=== PATIENT | male | born 1975 | race Caucasian/White ===

== ENCOUNTER → 2022-02-02 08:22 | Outpatient (CLI) | payer OTHER, SELFPAY ==
--- NOTE | 2022-02-02 | DI.RAD.S_ITS ---
PROCEDURE: FL WRIST INJECTION MR/CT RT INDICATIONS: RIGHT WRIST INJURY COMPARISON: [facility], MR, MR WRIST RT W CON, 02/02/2022, 9:08. TECHNIQUE: After informed consent had been obtained, the wrist was examined fluoroscopically, and a site chosen for injection of the radiocarpal compartment from a dorsal approach. Skin was prepped and draped in a sterile fashion and 1% lidocaine infiltrated from the skin down to the articular surface. A hypodermic needle was then introduced and a modest amount of contrast medium was instilled. Contrast largely appeared extra-articular despite multiple attempts at needle repositioning. Eventually a small amount of contrast appeared intra-articular and given the contrast within the soft tissues further visualization was limited. Approximately 4 mL of a dilute gadolinium solution injected. Needle was removed and dressing was applied. The patient experienced no complications throughout the procedure and left the fluoroscopic suite in no apparent distress. FINDINGS: A single fluoroscopic spot image demonstrates injected iodinated contrast largely extra-articular in position with possible small amount of intra-articular contrast. IMPRESSION: Fluoroscopic-guided administration of dilute Gadolinium solution for wrist MR arthrogram. There was difficulty injecting contrast intra-articularly. A repeat wrist arthrogram could be attempted if clinically indicated. Dictated by: Misael Thakkar M.D. on 02/02/2022 at 9:59 Approved by: Misael Thakkar M.D. on 02/02/2022 at 10:07
--- NOTE | 2022-02-02 | DI.MRI.S_ITS ---
PROCEDURE: MR WRIST RT W CON INDICATIONS: RIGHT WRIST INJURY TECHNIQUE: After the administration of 3-4 mL of dilute intra-articular Gadolinium contrast into the radiocarpal compartment, coronal T1 spin echo with fat saturation and T2 fast spin echo with fat saturation, axial T1 spin echo and T2 fast spin echo with fat saturation, sagittal T1 spin echo with and without fat saturation through the wrist. COMPARISON: [facility], MR, MR WRIST RIGHT WITHOUT CONTRAST, 07/31/2017, 16:20. [facility], , [place] WRIST INJECTION MR/CT RT, 02/02/2022, 8:59. FINDINGS: Image quality: Extravasation of arthrogram contrast is seen dorsal to the wrist, without intra-articular contrast identified. Some diagnostic information is obtained. Bones and cartilage: The carpal bones are normally aligned. Mild osseous edema is seen at the dorsal tip of the lunate that may be related to degenerative changes or a recent contusion. No evidence for avascular necrosis. Subchondral cystic changes are seen in the ulnar head. There is minimal spurring at the base of the 1st metacarpal. Carpal ligaments: Mild irregularity of the membranous portion of the scapholunate ligament is most likely secondary to degenerative perforation as seen on the prior MRI from 07/31/2017. The dorsal and volar bands of the scapholunate ligament appear to be intact without widening of the scapholunate interval. The lunotriquetral ligament appears intact. On sagittal images, the pisohamate ligament appears intact. Triangular fibrocartilage complex: A moderately-sized defect is seen in the central triangular fibrocartilage disc. There is also focal fluid signal intensity the near the ulnar foveal attachment that is suspicious for partial tearing. The ulnar styloid attachment appears to be intact. The dorsal and volar radioulnar ligaments appear to be intact. Small amount of fluid is seen in the distal radial ulnar joint space. Tendons and soft tissues: The carpal tunnel structures appear normal, including the median nerve. The ulnar nerve appears normal within Guyon's canal. T1-hyperintense fluid is seen within the 1st through 4th extensor compartments, related to extravasation during the arthrogram injection. Superimposed tenosynovitis cannot be excluded. There is moderate extensor carpi ulnaris tendinosis. Small lobular ganglion cyst is seen dorsal to the lunate measuring up to 8 x 7 x 2 mm. IMPRESSION: 1. Moderately-sized full-thickness tearing of the central triangle fibrocartilage disc, which appears to have mildly increased in size when compared to the prior MRI from 07/31/2017. There is also suspected partial tearing of the ulnar foveal attachment of the triangular fibrocartilage that appears new. 2. 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 The dorsal and volar bands appear to remain in continuity. No widening of the scapholunate interval is seen. 3. Mild osseous edema within the dorsal lunate is of uncertain etiology and may represent chronic degenerative cystic changes versus possibly a prior contusion. 4. Small ganglion cyst at the dorsum of the wrist adjacent to the lunate that measures up to 8 mm. 5. Moderate extensor carpi ulnaris tendinosis. Dictated by: Misael Salas M.D. on 02/02/2022 at 9:58 Approved by: Misael Salas M.D. on 02/02/2022 at 11:11
== END ==
PROVIDERS: Referring Provider Orthopaedic Surgery; Visit Provider Orthopaedic Surgery
DX: M24.131 Other articular cartilage disorders, right wrist (principal); S69.91XA Unspecified injury of right wrist, hand and finger(s), initial encounter; X58.XXXA Exposure to other specified factors, initial encounter
CPT/HCPCS: 20605; 73222; 77002

== ENCOUNTER → 2022-06-09 08:27 | Outpatient (CLI) | payer OTHER, SELFPAY ==
--- NOTE | 2022-06-09 | DI.MRI.S_ITS ---
PROCEDURE: MR SHOULDER RT W CON INDICATIONS: Shoulder pain, history surgery in August 2021 TECHNIQUE: After the administration of 12 mL of dilute intra-articular Gadolinium contrast, oblique coronal T1 and T2 spin echo with fat saturation, oblique sagittal T1 spin echo with and without fat saturation, oblique sagittal T2 fast spin echo with fat saturation, axial T1 spin echo with fat saturation through the shoulder. COMPARISON: [facility], CR, XR SHOULDER 2+ VIEWS RIGHT, 06/02/2022, 11:09. FINDINGS: Image quality: Degraded by motion artifact. Rotator cuff: The supraspinatus, infraspinatus, and subscapularis tendons appear intact throughout. No rotator cuff muscle atrophy on sagittal images. Bones and bursae: No bone marrow contusions or fractures. There is widening of the acromioclavicular interval with adjacent metallic artifact, suggestive of sequelae surgery. There is a small amount of fluid interposed in the acromioclavicular interval. There is severe marrow edema within the distal clavicle, and mild marrow edema within the acromion. Capsule and soft tissues: There is undercutting of the anterosuperior labrum, suggestive of a sublabral foramen. The long head of the biceps tendon demonstrates normal location and morphology. The rotator interval appears normal, without fibrosis. The coracohumeral ligament is of normal thickness. No intra-articular bodies. IMPRESSION: 1. Postsurgical sequelae. 2. Marrow edema within the distal clavicle, as well as fluid within the acromioclavicular interval, greater than expected given relative remote surgery in this location. Findings are suggestive of soft tissue injury and bony contusion/stress injury. Assessment for fracture is limited by motion artifact. CT may be helpful to evaluate for fracture. 3. No rotator cuff tear. Dictated by: Preeti Clemons M.D. on 06/09/2022 at 9:43 Approved by: Preeti Clemons M.D. on 06/09/2022 at 9:49
--- NOTE | 2022-06-09 | DI.RAD.S_ITS ---
PROCEDURE: FL SHOULDER INJECTION MR/CT RT INDICATIONS: RIGHT SHOULDER PAIN COMPARISON: [facility], CR, XR SHOULDER 2+ VIEWS RIGHT, 06/02/2022, 11:09. [facility], MR, MR SHOULDER RT W CON, 06/09/2022, 8:54. TECHNIQUE: The indications, alternatives, benefits, risks, and complications of the procedure were explained to the patient. Written informed consent was obtained and placed in the chart. The shoulder was examined fluoroscopically and a site for needle placement chosen for entry into the glenohumeral joint from an anterior approach. The skin was prepped and draped in a sterile fashion, and 1% lidocaine infiltrated from skin down to joint capsule. A spinal needle was inserted into the glenohumeral joint, and a small amount of iodinated contrast media injected to confirm intra-articular placement of the needle tip. This was followed by approximately 12 mL dilute solution of a gadolinium containing MR contrast agent. The needle was removed and a dressing was applied. The patient was given postprocedural instructions and sent to the MR suite for MR imaging. FINDINGS: A single fluoroscopic spot image demonstrates intra-articular location of injected iodinated contrast. IMPRESSION: Successful fluoroscopically guided administration of dilute Gadolinium solution into the shoulder joint for MR arthrogram. Dictated by: Wally Cooney M.D. on 06/09/2022 at 10:12 Approved by: Wally Cooney M.D. on 06/09/2022 at 10:12
== END ==
PROVIDERS: PCP Student in an Organized Health Care Education/Training Program; Referring Provider Orthopaedic Surgery; Visit Provider Orthopaedic Surgery
DX: M25.511 Pain in right shoulder (principal)
CPT/HCPCS: 23350; 73222; 77002

== ENCOUNTER 2022-08-30 19:02 | Emergency (ER) | payer OTHER, SELFPAY ==
[2022-08-30 19:16] VITALS: BP 128/88; PULSE 98; RESP 16; TEMP 37.1; O2SAT 99; BMI 31.0
--- NOTE | 2022-08-30 19:19 | DI.RAD.S_ITS ---
PROCEDURE: XR ELBOW LT MIN 3V INDICATIONS: left elbow pain and swelling TECHNIQUE: 3 views of the elbow were acquired. COMPARISON: None. FINDINGS: Bones: Questionable nondisplaced fracture along the ventral aspect of the radial head seen at the articular surface. Soft tissues: No elbow joint effusion. Mild diffuse soft tissue swelling over the olecranon process without foreign body or soft tissue gas present. No suspicious soft tissue calcifications. IMPRESSION: 1. Questionable nondisplaced radial head fracture. Correlate with history of trauma in range of motion. 2. Soft tissue swelling over the olecranon without foreign body or soft tissue gas present. Dictated by: April Oropeza M.D. on 08/30/2022 at 21:28 Approved by: April Oropeza M.D. on 08/30/2022 at 21:30
[2022-08-30] MEDS: ACETAMINOPHEN 325 MG TABLET 650 MG PO (20:37)
[2022-08-30 21:55] VITALS: O2SAT 99
[2022-08-30 21:56] VITALS: BP 109/76; O2SAT 98
--- NOTE | 2022-08-30 22:44 | ED_ITS ---
HPI - Skin/Abscess/Foreign Bdy General Chief complaint: Skin/Abscess/Foreign Body Stated complaint: L side elbow pain, red/swollen, can't bend Time Seen by Provider: 08/30/22 22:30 Source: patient Mode of arrival: Ambulatory Limitations: no limitations History of Present Illness HPI narrative: 47-year-old male who is here for evaluation of discomfort and swelling to his left elbow. He states it is difficult for him to both bend and extend his elbow. Has never had anything like this in the past. No trauma. No fevers. Has tried some [id number]-[id number] medications for the discomfort without peripherally. Related Data Previous Rx's Medication Instructions Recorded hydrocodone 5 mg-acetaminophen 325 1 tab PO Q4H PRN pain #10 tabs 08/30/22 mg tablet sulfamethoxazole 400 1 tab PO BID 2 weeks #28 tabs 08/30/22 mg-trimethoprim 80 mg tablet (Bactrim) Allergies Allergy/AdvReac Type Severity Reaction Status Date / Time No Known Drug Allergies Allergy Verified 08/30/22 19:16 Review of Systems Constitutional Constitutional: Reports system reviewed and no additional complaints, except as documented Musculoskeletal Musculoskeletal: Reports system reviewed and no additional complaints, except as documented Integumentary/Breasts Skin/Breast: Reports system reviewed and no additional complaints, except as documented Patient History Social History Smoking Status: Unknown if ever smoked Smoking Status: Unknown if ever smoked alcohol intake frequency: holidays/special occasions only Substance Use Type: does not use Exam Initial Vital Signs Initial Vital Signs: Vital Signs Temperature 98.7 F 08/30/22 19:16 Pulse Rate 98 H 08/30/22 19:16 Respiratory Rate 16 08/30/22 19:16 Blood Pressure 128/88 08/30/22 19:16 Pulse Oximetry 99 08/30/22 19:16 Oxygen Delivery Method Room Air 08/30/22 19:16 Skin Other: Slight redness located over the olecranon bursa Neuro Sensory Exam: no sensory deficits noted Extrem Other: Patient does have swelling over the olecranon bursa consistent with bursitis. This does limit the range of motion of his left elbow. He is no tenderness over the radial head. His left shoulder and left wrist are unremarkable. No changes to the antecubital fossa. Course Orders Ordered: Discontinued Medications Acetaminophen (Acetaminophen 325 Mg Tablet) 650 mg PO NOW ONE Stop: 08/30/22 20:32 Last Admin: 08/30/22 20:37 Dose: 650 mg Documented By: TRAVIS Hydrocodone Bitart/Acetaminophen (Hydrocodone/Acet 5/325 Prepack) 1 bottle MISC SEEINSTR ONE Stop: 08/30/22 22:45 Last Admin: 08/30/22 22:51 Dose: 1 bottle Documented By: KIM Trimethoprim/Sulfamethoxazole (Trimeth/Sulfa 160/800 (Ds) Tablet) 1 tab PO NOW ONE Stop: 08/30/22 22:45 Last Admin: 08/30/22 22:51 Dose: 1 tab Documented By: KIM Vital Signs Vital signs: Vital Signs - 8 hr 08/30/22 21:55 08/30/22 21:56 08/30/22 21:56 Pulse Rate Respiratory Rate Blood Pressure 109/76 Pulse Oximetry 99 98 Oxygen Delivery Method 08/30/22 22:51 Pulse Rate 95 H Respiratory Rate 16 Blood Pressure 122/90 Pulse Oximetry 100 Oxygen Delivery Method Room Air MDM - Skin/Abscess/Foreign Bdy Imaging Data Extremity x-ray #1: Radiologist's Impression: PROCEDURE:? XR ELBOW LT MIN 3V ? INDICATIONS:? left elbow pain and swelling ? TECHNIQUE:? 3 views of the elbow were acquired.? ? COMPARISON:? None. ? FINDINGS:? ? Bones:? Questionable nondisplaced fracture along the ventral aspect of the radial head seen at the articular surface. ? Soft tissues:? No elbow joint effusion.? Mild diffuse soft tissue swelling over the olecranon process without foreign body or soft tissue gas present.? No suspicious soft tissue calcifications.? ? ? IMPRESSION:? ? 1. Questionable nondisplaced radial head fracture.? Correlate with history of trauma in range of motion. ? 2. Soft tissue swelling over the olecranon without foreign body or soft tissue gas present.? MDM Narrative Medical decision making narrative: The x-ray shows a possible radial head fracture however he has no tenderness over this area. His physical exam is consistent with a bursitis. He denies any trauma to the area. There is redness and some warmth but it is very much localized over the bursa. This does limit his range of motion. The question is whether not this is a septic bursitis versus just an inflammation. Given the redness over the area I am hesitant to drain the bursa for concern of introducing infection if there is not want already present. I have low suspicion that this is a septic joint. Plan will be is to treat it like a se ptic bursitis. Was placed on antibiotics. First dose given here in the emergency department. We did discuss other conservative measures that he could try at home. We did discuss strict return precautions and follow-up instructions. Has no indication for admission in the hospital. No indication for IV antibiotics. Also low suspicion for gout based on his presentation today. He was given return precautions and follow-up instructions. He expressed understanding and agreement. Discharge Plan Departure Patient Disposition: Home Clinical Impression: Olecranon bursitis of left elbow Instructions: Bursitis, How To Perform RICE (Rest, Ice, Compress, Elevate) Activity Restrictions/Additional Instructions: I do recommend you continue to take Tylenol/ibuprofen. You can also use ice over the area like we discussed. Take the medications as directed. Return to the emergency department for any new or worsening symptoms. Prescriptions: New sulfamethoxazole-trimethoprim [Bactrim] 400-80 mg tablet 1 tab PO BID 14 Days Qty: 28 0RF hydrocodone-acetaminophen 5-325 mg tablet 1 tab PO Q4H PRN (Reason: pain) Qty: 10 0RF Referrals: Jesus Manuel Callahan DO [Primary Care Provider] - Stand Alone Forms: Patient Portal/API
[2022-08-30 22:51] VITALS: BP 122/90; PULSE 95; RESP 16; O2SAT 100
[2022-08-30] MEDS: HYDROCODONE/ACET 5/325 PREPACK 1 BOTTLE MISC (22:51)
[2022-08-30] MEDS: TRIMETH/SULFA 160/800 (DS) TABLET 1 TAB PO (22:51)
== END 2022-08-30 22:56 | disposition home or self-care (01) ==
PROVIDERS: Emergency Provider Emergency Medicine; PCP Student in an Organized Health Care Education/Training Program
DX: M70.22 Olecranon bursitis, left elbow (principal)
CPT/HCPCS: 73080; 99283

== ENCOUNTER 2022-12-09 04:52 | Emergency (ER) | payer OTHER, SELFPAY ==
[2022-12-09] VITALS (9 sets, daily range): BP systolic 103–130; BP diastolic 55–78; PULSE 51–86; RESP 18; TEMP 37; O2SAT 97–99; BMI 31.0
--- NOTE | 2022-12-09 05:03 | ED.GENADULT ---
HPI - General Adult General Chief complaint: Extremity Problem,Nontraumatic Stated complaint: swollen, rt knee pain, can't walk, dehydrated Time Seen by Provider: 12/09/22 04:55 Source: patient Mode of arrival: Wheelchair Limitations: no limitations History of Present Illness HPI narrative: Patient is a 47-year-old male who comes in the emergency department for a couple days of swelling and pain to his right ankle in his right knee. He states that he also feels very dehydrated as his lips are very dry. He states he feels like his right ankle and knee are swollen. There was no known trauma. He does have swelling in his hands as well. He has been camping. He does have he describes her bug bites? in his hands. No fevers. No vomiting. No abdominal pain. Generally just does not feel very well. Related Data Previous Rx's Medication Instructions Recorded hydrocodone 5 mg-acetaminophen 325 1 tab PO Q4H PRN pain #10 tabs 08/30/22 mg tablet Allergies Allergy/AdvReac Type Severity Reaction Status Date / Time No Known Drug Allergies Allergy Verified 12/09/22 06:45 Review of Systems Review of Systems ROS Unobtainable: All systems reviewed & are unremarkable except as noted in HPI and below Patient History Social History Smoking Status: Unknown if ever smoked Smoking Status: Unknown if ever smoked alcohol intake frequency: holidays/special occasions only Substance Use Type: does not use Exam Initial Vital Signs Initial Vital Signs: Vital Signs Pulse Rate 86 12/09/22 05:03 Pulse Oximetry 97 12/09/22 05:03 Oxygen Delivery Method Room Air 12/09/22 05:03 Const General: cooperative, comfortable and No ill appearing [facility] Head: normal to inspection and normocephalic Resp Effort & Inspection: normal respiratory effort Auscultation: clear to auscultation bilaterally Cardio Rate: regular rate Rhythm: regular rhythm GI Inspection: normal to inspection Skin Other: Mild redness located in the distal 1/3 of the right tibia. Patient also has multiple very small pustules on the fingers of his right hand and left hand. Neuro General: patient alert, patient awake, patient oriented x3 and moves all extremities Extrem Other: Patient does have tenderness to palpation to his right ankle also his right knee. He is able to flex at the right knee but has discomfort doing so. Also has discomfort flexion-extension of the right ankle. His left lower extremity his relatively unremarkable. His pelvis is unremarkable. He does have swelling to bilateral hands. Course Orders Ordered: ED Orders 12/09/22 05:09 XR ankle RT min 3V Stat XR knee RT 3V Stat 12/09/22 05:30 Blood Culture Stat C-Reactive Protein Quant Stat Complete Blood Count AUTO DIFF Stat Comprehensive Metabolic Panel Stat Erythrocyte Sedimentation Rate Stat Lactate (Lactic Acid) Stat Lipase Stat Uric Acid Stat Discontinued Medications Sodium Chloride (Normal Saline 0.9%) 1,000 mls @ 1,000 mls/hr IV BOLUS ONE Stop: 12/09/22 06:08 Last Infusion: 12/09/22 06:53 Dose: Infused Ketorolac Tromethamine (Ketorolac 30 Mg/Ml Vial) 30 mg IV NOW ONE Stop: 12/09/22 05:44 Last Admin: 12/09/22 05:48 Dose: 30 mg Vital Signs Vital signs: Vital Signs - 8 hr 12/09/22 05:08 12/09/22 05:03 12/09/22 05:55 Temperature 98.6 F Pulse Rate 82 86 Respiratory Rate 18 Blood Pressure 130/73 122/75 Pulse Oximetry 98 97 Oxygen Delivery Method Room Air Room Air 12/09/22 05:55 12/09/22 06:00 12/09/22 06:00 Temperature Pulse Rate 70 73 Respiratory Rate Blood Pressure 120/66 Pulse Oximetry 99 99 Oxygen Delivery Method Room Air Room Air 12/09/22 06:30 12/09/22 06:30 Temperature Pulse Rate 63 Respiratory Rate Blood Pressure 115/78 Pulse Oximetry 97 Oxygen Delivery Method Room Air Medical Decision Making Lab Data Lab results reviewed: Yes I reviewed the patient's lab results. 12/09/22 05:30 12/09/22 05:30 Labs: Lab Results 12/09/22 12/09/22 12/09/22 Range/Units 05:30 05:30 05:30 WBC 8.9 (4.5-11.0) X10^3/uL RBC 4.34 L (4.5-5.9) X10^6/uL Hgb 12.7 L (13.5-17.5) g/dL Hct 37.5 L (41-53) % MCV 86.6 (80-100) fL MCH 29.2 (26-34) PG MCHC 33.7 (30-36) % RDW 13.6 (11.6-14.8) % Plt Count 141 L (150-400) X10^3/uL Neut % (Auto) 70.5 (50-75) % Lymph % (Auto) 17.7 L (25-40) % [place] % (Auto) 7.7 (3-14) % Eos % (Auto) 3.2 (2-4) % Baso % (Auto) 0.9 (0-2) % Neut # (Auto) 6300 (8454-5084) /uL Lymph # (Auto) 1600 (7410-2738) /uL [place] # (Auto) 700 (0-900) /uL Eos # (Auto) 300 (0-450) /uL Baso # (Auto) 100 (0-100) /uL ESR 7 (0-15) MM/HR Sodium 138 (137-145) mmol/L Potassium 3.4 (3.4-5.1) mmol/L Chloride 105 (98-107) mmol/L Carbon Dioxide 27 (22-32) mmol/L BUN 16 (9-20) mg/dL Creatinine 1.13 (0.66-1.25) mg/dL Estimated GFR > 60 (>60) mL/min BUN/Creatinine Ratio 14.2 (6-22) Glucose 123 H (70-100) mg/dL Lactate (0.7-2.1) mmol/L Uric Acid 8.4 (3.5-8.5) mg/dL Calcium 8.2 L (8.4-10.2) mg/dL Total Bilirubin 0.3 (0.2-1.3) mg/dL AST 70 H (17-59) IU/L ALT 62 H (<50) IU/L Alkaline Phosphatase 68 (38-126) U/L C-Reactive Protein 3.0 H (<1.0) mg/dL Total Protein 6.1 L (6.3-8.2) g/dL Albumin 3.6 (3.5-5.0) g/dL Globulin 2.5 (1.7-4.1) g/dL Albumin/Globulin Ratio 1.4 (1.0-2.8) Lipase 215 (23-300) U/L 12/09/22 Range/Units 05:30 WBC (4.5-11.0) X10^3/uL RBC (4.5-5.9) X10^6/uL Hgb (13.5-17.5) g/dL Hct (41-53) % MCV (80-100) fL MCH (26-34) PG MCHC (30-36) % RDW (11.6-14.8) % Plt Count (150-400) X10^3/uL Neut % (Auto) (50-75) % Lymph % (Auto) (25-40) % [place] % (Auto) (3-14) % Eos % (Auto) (2-4) % Baso % (Auto) (0-2) % Neut # (Auto) (0639-8786) /uL Lymph # (Auto) (7724-4052) /uL [place] # (Auto) (0-900) /uL Eos # (Auto) (0-450) /uL Baso # (Auto) (0-100) /uL ESR (0-15) MM/HR Sodium (137-145) mmol/L Potassium (3.4-5.1) mmol/L Chloride (98-107) mmol/L Carbon Dioxide (22-32) mmol/L BUN (9-20) mg/dL Creatinine (0.66-1.25) mg/dL Estimated GFR (>60) mL/min BUN/Creatinine Ratio (6-22) Glucose (70-100) mg/dL Lactate 1.2 (0.7-2.1) mmol/L Uric Acid (3.5-8.5) mg/dL Calcium (8.4-10.2) mg/dL Total Bilirubin (0.2-1.3) mg/dL AST (17-59) IU/L ALT (<50) IU/L Alkaline Phosphatase (38-126) U/L C-Reactive Protein (<1.0) mg/dL Total Protein (6.3-8.2) g/dL Albumin (3.5-5.0) g/dL Globulin (1.7-4.1) g/dL Albumin/Globulin Ratio (1.0-2.8) Lipase (23-300) U/L Urine Dip Bedside Urine Glucose Negative Bedside Urine Bilirubin + 1 Bedside Urine Ketone - Negative Urine Specific Maribel 1.015 Bedside Urine Occult Blood +/- Bedside Urine pH 6.0 Bedside Urine Protein - Negative Bedside Urine Urobilinogen - Negative Bedside Urine Nitrite - Negative Bedside Urine Leukocytes - Negative Esterase Point of care testing: Urine Dip Bedside Urine Glucose Negative Bedside Urine Bilirubin + 1 Bedside Urine Ketone - Negative Urine Specific Maribel 1.015 Bedside Urine Occult Blood +/- Bedside Urine pH 6.0 Bedside Urine Protein - Negative Bedside Urine Urobilinogen - Negative Bedside Urine Nitrite - Negative Bedside Urine Leukocytes - Negative Esterase Imaging Data Extremity x-ray #1: Attestation: I personally reviewed and interpreted this imaging study as follows: My Impression: Of fractures or dislocation of the right knee Extremity x-ray #2: Attestation: I personally reviewed and interpreted this imaging study as follows: My Impression: No fractures or dislocation of the right ankle MDM Narrative Medical decision making narrative: Labs are very reassuring. Does not have a leukocytosis. Is afebrile. Has not tachycardic. Has a normal lactate and normal ESR but is slightly elevated CRP. Unsure of the significance of this. His uric acid is normal. X-ray show no signs of fracture. Care turned over to Dr. Urbina to follow-up and disposition. Discharge Plan Departure Prescriptions: No Action hydrocodone-acetaminophen 5-325 mg tablet 1 tab PO Q4H PRN (Reason: pain) Qty: 10 0RF Referrals: Jesus Manuel Callahan DO [Primary Care Provider] -
--- NOTE | 2022-12-09 05:09 | DI.RAD.S_ITS ---
PROCEDURE: XR ANKLE RT MIN 3V INDICATIONS: pain and swelling TECHNIQUE: 3 views of the ankle were acquired. COMPARISON: None. FINDINGS: Bones: No fractures or dislocations. Ankle mortise is normally aligned. No suspicious bony lesions. Soft tissues: No tibiotalar joint effusion. Achilles tendon appears normal. Soft tissue swelling. IMPRESSION: No acute osseous abnormality. Soft tissue swelling. If clinical symptoms persist or clinical suspicion for pathology is high, a repeat examination in 7-10 days, or advanced imaging such as CT or MRI is suggested for further evaluation. No significant discrepancy with the shiftman radiology preliminary report. Dictated by: Wally Cooney M.D. on 12/09/2022 at 9:15 Approved by: Wally Cooney M.D. on 12/09/2022 at 9:16
--- NOTE | 2022-12-09 05:09 | DI.RAD.S_ITS ---
PROCEDURE: XR KNEE RT 3V INDICATIONS: pain and swelling TECHNIQUE: 3 views of the knee were acquired. COMPARISON: None. FINDINGS: Bones: No fractures or dislocations. No suspicious bony lesions. Soft tissues: No joint effusion. No suspicious soft tissue calcifications. IMPRESSION: No acute osseous abnormality. If clinical symptoms persist or clinical suspicion for pathology is high, a repeat examination in 7-10 days, or advanced imaging such as CT or MRI is suggested for further evaluation. No significant discrepancy with the [facility] radiology preliminary report. Dictated by: Wally Cooney M.D. on 12/09/2022 at 9:16 Approved by: Wally Cooney M.D. on 12/09/2022 at 9:17
[2022-12-09 05:44] LABS: Add Manual Diff / Slide Review NO; Basophils Absolute Auto 100 /uL (0-100); Basophils Percent Auto 0.9 % (0-2); Eosinophils Absolute Auto 300 /uL (0-450); Eosinophils Percent Auto 3.2 % (2-4); Hematocrit 37.5 % (41-53); Hemoglobin 12.7 g/dL (13.5-17.5); Lymphocytes Absolute Auto 1600 /uL (1100-4500); Lymphocytes Percent Auto 17.7 % (25-40); Mean Corpuscular HGB Conc 33.7 % (30-36); Mean Corpuscular Hemoglobin 29.2 PG (26-34); Mean Corpuscular Volume 86.6 fL (80-100); Monocytes Absolute Auto 700 /uL (0-900); Monocytes Percent Auto 7.7 % (3-14); Neutrophils Absolute Auto 6300 /uL (1500-7000); Neutrophils Percent Auto 70.5 % (50-75); Platelet Count 141 X10^3/uL (150-400); Red Blood Cell Count 4.34 X10^6/uL (4.5-5.9); Red Cell Distribution Width 13.6 % (11.6-14.8); White Blood Cell Count 8.9 X10^3/uL (4.5-11.0)
[2022-12-09] MEDS: SODIUM CHLORIDE 0.9% 1,000 ML 1000 ML IV (05:48)
[2022-12-09] MEDS: KETOROLAC 30 MG/ML VIAL IV (05:48)
[2022-12-09 05:53] LABS: Lactate (Lactic Acid) 1.2 mmol/L (0.7-2.1)
[2022-12-09 05:57] LABS: Alanine Aminotransferase 62 IU/L (<50); Albumin 3.6 g/dL (3.5-5.0); Albumin Globulin Ratio 1.4 (1.0-2.8); Alkaline Phosphatase 68 U/L (38-126); Aspartate Aminotransferase 70 IU/L (17-59); BUN Creatinine Ratio 14.2 (6-22); Bilirubin Total 0.3 mg/dL (0.2-1.3); Blood Urea Nitrogen 16 mg/dL (9-20); Calcium 8.2 mg/dL (8.4-10.2); Carbon Dioxide 27 mmol/L (22-32); Chloride 105 mmol/L (98-107); Estimated Glomerular Filt Rate > 60 mL/min (>60); Globulin 2.5 g/dL (1.7-4.1); Glucose 123 mg/dL (70-100); HEMOLYSIS 15 (0-50); Lipase 215 U/L (23-300); Potassium 3.4 mmol/L (3.4-5.1); Sodium 138 mmol/L (137-145); Total Protein 6.1 g/dL (6.3-8.2)
[2022-12-09 06:03] LABS: Erythrocyte Sedimentation Rate 7 MM/HR (0-15)
[2022-12-09 06:13] LABS: Uric Acid 8.4 mg/dL (3.5-8.5)
--- NOTE | 2022-12-09 08:01 | ED_ITS ---
HPI - Extremity Problem General Chief complaint: Extremity Problem,Nontraumatic Stated complaint: swollen, rt knee pain, can't walk, dehydrated Time Seen by Provider: 12/09/22 04:55 Source: patient Mode of arrival: Wheelchair Limitations: no limitations History of Present Illness HPI Narrative: Please see originial document with Dr. Conner from 12/09/22 started at 05:03. Patient did not have a separate visit. Related Data Previous Rx's Medication Instructions Recorded hydrocodone 5 mg-acetaminophen 325 1 tab PO Q4H PRN pain #10 tabs 08/30/22 mg tablet doxycycline hyclate 100 mg tablet 100 mg PO BID #20 tabs 12/09/22 Allergies Allergy/AdvReac Type Severity Reaction Status Date / Time No Known Drug Allergies Allergy Verified 12/09/22 06:45 Patient History Social History Smoking Status: Unknown if ever smoked Smoking Status: Unknown if ever smoked alcohol intake frequency: holidays/special occasions only Substance Use Type: does not use Exam Initial Vital Signs Initial Vital Signs: Vital Signs Pulse Rate 86 12/09/22 05:03 Pulse Oximetry 97 12/09/22 05:03 Oxygen Delivery Method Room Air 12/09/22 05:03 Course Orders Ordered: ED Orders 12/09/22 05:09 XR ankle RT min 3V Stat XR knee RT 3V Stat 12/09/22 05:30 C-Reactive Protein Quant Stat Complete Blood Count AUTO DIFF Stat Comprehensive Metabolic Panel Stat Erythrocyte Sedimentation Rate Stat Lactate (Lactic Acid) Stat Lipase Stat Uric Acid Stat 12/09/22 06:05 Blood Culture Stat Discontinued Medications Sodium Chloride (Normal Saline 0.9%) 1,000 mls @ 1,000 mls/hr IV BOLUS ONE Stop: 12/09/22 06:08 Last Infusion: 12/09/22 06:53 Dose: 0 mls/hr Documented By: Admin: 12/09/22 05:48 Dose: 1,000 mls/hr Documented By: DANA Ketorolac Tromethamine (Ketorolac 30 Mg/Ml Vial) 30 mg IV NOW ONE Stop: 12/09/22 05:44 Last Admin: 12/09/22 05:48 Dose: 30 mg Documented By: DANA Vital Signs Vital signs: Vital Signs - 8 hr 12/09/22 05:08 12/09/22 05:03 12/09/22 05:55 Temperature 98.6 F Pulse Rate 82 86 Respiratory Rate 18 Blood Pressure 130/73 122/75 Pulse Oximetry 98 97 Oxygen Delivery Method Room Air Room Air 12/09/22 05:55 12/09/22 06:00 12/09/22 06:00 Temperature Pulse Rate 70 73 Respiratory Rate Blood Pressure 120/66 Pulse Oximetry 99 99 Oxygen Delivery Method Room Air Room Air 12/09/22 06:30 12/09/22 06:30 12/09/22 07:00 Temperature Pulse Rate 63 Respiratory Rate Blood Pressure 115/78 112/64 Pulse Oximetry 97 Oxygen Delivery Method Room Air 12/09/22 07:00 12/09/22 07:30 12/09/22 07:30 Temperature Pulse Rate 72 52 L Respiratory Rate Blood Pressure 103/55 L Pulse Oximetry 97 97 Oxygen Delivery Method 12/09/22 08:00 12/09/22 08:00 12/09/22 08:12 Temperature Pulse Rate 51 L Respiratory Rate Blood Pressure 115/66 117/73 Pulse Oximetry 99 Oxygen Delivery Method 12/09/22 08:12 Temperature Pulse Rate 72 Respiratory Rate Blood Pressure Pulse Oximetry 99 Oxygen Delivery Method MDM - Extremity (Nontraumatic) Lab Data 12/09/22 05:30 12/09/22 05:30 Labs: Lab Results 12/09/22 12/09/22 12/09/22 Range/Units 05:30 05:30 05:30 WBC 8.9 (4.5-11.0) X10^3/uL RBC 4.34 L (4.5-5.9) X10^6/uL Hgb 12.7 L (13.5-17.5) g/dL Hct 37.5 L (41-53) % MCV 86.6 (80-100) fL MCH 29.2 (26-34) PG MCHC 33.7 (30-36) % RDW 13.6 (11.6-14.8) % Plt Count 141 L (150-400) X10^3/uL Neut % (Auto) 70.5 (50-75) % Lymph % (Auto) 17.7 L (25-40) % [place] % (Auto) 7.7 (3-14) % Eos % (Auto) 3.2 (2-4) % Baso % (Auto) 0.9 (0-2) % Neut # (Auto) 6300 (3939-5798) /uL Lymph # (Auto) 1600 (7891-4156) /uL [place] # (Auto) 700 (0-900) /uL Eos # (Auto) 300 (0-450) /uL Baso # (Auto) 100 (0-100) /uL ESR 7 (0-15) MM/HR Sodium 138 (137-145) mmol/L Potassium 3.4 (3.4-5.1) mmol/L Chloride 105 (98-107) mmol/L Carbon Dioxide 27 (22-32) mmol/L BUN 16 (9-20) mg/dL Creatinine 1.13 (0.66-1.25) mg/dL Estimated GFR > 60 (>60) mL/min BUN/Creatinine Ratio 14.2 (6-22) Glucose 123 H (70-100) mg/dL Lactate (0.7-2.1) mmol/L Uric Acid 8.4 (3.5-8.5) mg/dL Calcium 8.2 L (8.4-10.2) mg/dL Total Bilirubin 0.3 (0.2-1.3) mg/dL AST 70 H (17-59) IU/L ALT 62 H (<50) IU/L Alkaline Phosphatase 68 (38-126) U/L C-Reactive Protein 3.0 H (<1.0) mg/dL Total Protein 6.1 L (6.3-8.2) g/dL Albumin 3.6 (3.5-5.0) g/dL Globulin 2.5 (1.7-4.1) g/dL Albumin/Globulin Ratio 1.4 (1.0-2.8) Lipase 215 (23-300) U/L 12/09/22 Range/Units 05:30 WBC (4.5-11.0) X10^3/uL RBC (4.5-5.9) X10^6/uL Hgb (13.5-17.5) g/dL Hct (41-53) % MCV (80-100) fL MCH (26-34) PG MCHC (30-36) % RDW (11.6-14.8) % Plt Count (150-400) X10^3/uL Neut % (Auto) (50-75) % Lymph % (Auto) (25-40) % [place] % (Auto) (3-14) % Eos % (Auto) (2-4) % Baso % (Auto) (0-2) % Neut # (Auto) (7757-7804) /uL Lymph # (Auto) (6345-9615) /uL [place] # (Auto) (0-900) /uL Eos # (Auto) (0-450) /uL Baso # (Auto) (0-100) /uL ESR (0-15) MM/HR Sodium (137-145) mmol/L Potassium (3.4-5.1) mmol/L Chloride (98-107) mmol/L Carbon Dioxide (22-32) mmol/L BUN (9-20) mg/dL Creatinine (0.66-1.25) mg/dL Estimated GFR (>60) mL/min BUN/Creatinine Ratio (6-22) Glucose (70-100) mg/dL Lactate 1.2 (0.7-2.1) mmol/L Uric Acid (3.5-8.5) mg/dL Calcium (8.4-10.2) mg/dL Total Bilirubin (0.2-1.3) mg/dL AST (17-59) IU/L ALT (<50) IU/L Alkaline Phosphatase (38-126) U/L C-Reactive Protein (<1.0) mg/dL Total Protein (6.3-8.2) g/dL Albumin (3.5-5.0) g/dL Globulin (1.7-4.1) g/dL Albumin/Globulin Ratio (1.0-2.8) Lipase (23-300) U/L Urine Dip Bedside Urine Glucose Negative Bedside Urine Bilirubin + 1 Bedside Urine Ketone - Negative Urine Specific [place] 1.015 Bedside Urine Occult Blood +/- Bedside Urine pH 6.0 Bedside Urine Protein - Negative Bedside Urine Urobilinogen - Negative Bedside Urine Nitrite - Negative Bedside Urine Leukocytes - Negative Esterase Discharge Plan Departure Patient Disposition: Home Clinical Impression: Polyarthralgia Instructions: DI for Arthralgia Activity Restrictions/Additional Instructions: Please follow-up for recheck, if your symptoms continue to persist your physician may need to perform additional workup and possibly referral to Rheumatology. A test for Lyme disease was sent. This is a send out lab and takes about 1-5 days to return. This is a less likely cause of your symptoms but possible. You may take Tylenol up to a 1000 mg every 6 hours, you may also take meloxicam 1 tablet every 12 hours as needed for pain. This medication is an NSAID do not take ibuprofen, Aleve or naproxen with this medication. Prescription for antibiotic was sent, take 1 tablet twice daily times 10 days. Doxycycline can make you more likely to have sun smith so use sun protection while taking this medication. Prescription sent to [facility] in [place]. Please return for worsening symptoms, new fevers, chest pain or shortness of breath, lightheadedness or passing out, alterations in mental status, persistent vomiting, new weakness, numbness or tingling, spreading rash or other new or concerning changes Prescriptions: New doxycycline hyclate 100 mg tablet 100 mg PO BID Qty: 20 0RF No Action hydrocodone-acetaminophen 5-325 mg tablet 1 tab PO Q4H PRN (Reason: pain) Qty: 10 0RF Referrals: Jesus Manuel Callahan DO [Primary Care Provider] - Stand Alone Forms: Patient Portal/API, Work Release Note
[2022-12-14 11:16] LABS: 18 kD IgG Band Absent (.); 23 kD IgG Band Absent (.); 28 kD IgG Band Absent (.); 30 kD IgG Band Absent (.); 39 kD IgG Band Absent (.); 41 kD IgG Bands Absent (.); 45 kD IgG Band Absent (.); 58 kD IgG Band Absent (.); 66 kD IgG Band Absent (.); IgG P93 AB Absent (.); IgM P23 AB Absent (.); IgM P39 AB Absent (.); IgM P41 AB Absent (.); Lyme IgG Line Blot Interpretat Negative (.); Lyme IgM Line Blot Interpretat Negative (.)
== END 2022-12-09 08:38 | disposition home or self-care (01) ==
PROVIDERS: Emergency Medicine; Emergency Provider Emergency Medicine; PCP Student in an Organized Health Care Education/Training Program
DX: M25.561 Pain in right knee (principal)
CPT/HCPCS: 36415; 73562; 73610; 80053; 81003; 83605; 83690; 84550; 85025; 85651; 86140; 86617; 87040; 96374; 99284; J1885

== ENCOUNTER 2023-02-16 08:52 | Emergency (ER) | payer OTHER, SELFPAY ==
[2023-02-16 09:05] VITALS: BP 114/77; PULSE 72; RESP 16; TEMP 36.8; O2SAT 100; BMI 30.2
--- NOTE | 2023-02-16 09:06 | DI.RAD.S_ITS ---
PROCEDURE: XR FOOT RT MIN 3V INDICATIONS: fall TECHNIQUE: 3 views of the foot were acquired. COMPARISON: None. FINDINGS: Bones: No fractures or dislocations. No suspicious bony lesions. Soft tissues: No tibiotalar joint effusion. Achilles tendon appears normal. IMPRESSION: Right foot without acute fracture or dislocation. If there is persistent clinical concern for occult fracture given adequate mechanism of injury, consider repeat imaging in 10-14 days. Dictated by: Juaquin Contreras M.D. on 02/16/2023 at 10:02 Approved by: Juaquin Cotnreras M.D. on 02/16/2023 at 10:03
--- NOTE | 2023-02-16 09:06 | DI.RAD.S_ITS ---
PROCEDURE: XR ANKLE LT MIN 3V INDICATIONS: fall TECHNIQUE: 3 views of the ankle were acquired. COMPARISON: [facility], CR, XR ANKLE RT MIN 3V, 12/09/2022, 5:31. FINDINGS: Bones: No fractures or dislocations. Ankle mortise is normally aligned. No suspicious bony lesions. Soft tissues: No tibiotalar joint effusion. Achilles tendon appears normal. Soft tissue swelling of the mediolateral malleolus. IMPRESSION: Left ankle soft tissue swelling without underlying fracture or dislocation. If there is persistent clinical concern for occult fracture given adequate mechanism of injury, consider repeat imaging in 10-14 days. Dictated by: Juaquin Contreras M.D. on 02/16/2023 at 10:01 Approved by: Juaquin Contreras M.D. on 02/16/2023 at 10:02
--- NOTE | 2023-02-16 09:06 | DI.RAD.S_ITS ---
PROCEDURE: XR FOOT LT MIN 3V INDICATIONS: fall TECHNIQUE: 3 views of the foot were acquired. COMPARISON: None. FINDINGS: Bones: No definite fractures or dislocations. No suspicious bony lesions. Soft tissues: No tibiotalar joint effusion. Achilles tendon appears normal. Diffuse soft tissue swelling of the left foot. IMPRESSION: Diffuse soft tissue swelling of the left foot without underlying fracture or dislocation. If there is persistent clinical concern for occult fracture given adequate mechanism of injury, consider repeat imaging in 10-14 days. Dictated by: Juaquin Contreras M.D. on 02/16/2023 at 10:00 Approved by: Juaquin Contreras M.D. on 02/16/2023 at 10:01
--- NOTE | 2023-02-16 09:58 | ED.LOWEXIN ---
HPI - Extremity Injury (Lower) General Chief Complaint: Extremity Injury, Lower Stated Complaint: foot pain (both), swelling on lt foot Time Seen by Provider: 02/16/23 09:11 Source: patient Mode of arrival: Ambulatory Related Data Home Medications Medication Instructions Recorded Confirmed allopurinol 100 mg tablet 100 mg PO DAILY 02/16/23 02/16/23 dextroamphetamine-amphetamine ER 1 cap PO DIRECTED 02/16/23 02/16/23 10 mg 24hr capsule,extend release dextroamphetamine-amphetamine ER 1 cap PO QAM 02/16/23 02/16/23 30 mg 24hr capsule,extend release trazodone 150 mg tablet 150 mg PO ONCE PM 02/16/23 02/16/23 venlafaxine 75 mg capsule,extended PO 02/16/23 release 24 hr Allergies Allergy/AdvReac Type Severity Reaction Status Date / Time No Known Drug Allergies Allergy Verified 02/16/23 09:11 Patient History Social History Smoking Status: Unknown if ever smoked Smoking Status: Unknown if ever smoked alcohol intake frequency: holidays/special occasions only Substance Use Type: does not use Exam Initial Vital Signs Initial Vital Signs: Vital Signs Temperature 98.2 F 02/16/23 09:05 Pulse Rate 72 02/16/23 09:05 Respiratory Rate 16 02/16/23 09:05 Blood Pressure 114/77 02/16/23 09:05 Pulse Oximetry 100 02/16/23 09:05 Oxygen Delivery Method Room Air 02/16/23 09:05 Course Orders Ordered: ED Orders 02/16/23 09:06 XR ankle LT min 3V Stat XR foot LT min 3V Stat XR foot RT min 3V Stat Vital Signs Vital signs: Vital Signs - 8 hr 02/16/23 09:05 Temperature 98.2 F Pulse Rate 72 Respiratory Rate 16 Blood Pressure 114/77 Pulse Oximetry 100 Oxygen Delivery Method Room Air Discharge Plan Departure Prescriptions: No Action venlafaxine 75 mg capsule,extended release 24hr PO allopurinol 100 mg tablet 100 mg PO DAILY trazodone 150 mg tablet 150 mg PO ONCE PM dextroamphetamine-amphetamine 10 mg capsule,extended release 24hr 1 cap PO DIRECTED Rx Instructions: in afternoon dextroamphetamine-amphetamine 30 mg capsule,extended release 24hr 1 cap PO QAM Referrals: Jesus Manuel Callahan DO [Primary Care Provider] -
--- NOTE | 2023-02-16 10:18 | ED.LOWEXIN ---
HPI - Extremity Injury (Lower) General Chief Complaint: Extremity Injury, Lower Stated Complaint: foot pain (both), swelling on lt foot Time Seen by Provider: 02/16/23 09:11 Source: patient Mode of arrival: Ambulatory History of Present Illness HPI Narrative: 47-year-old male presents for evaluation of bilateral foot pain and swelling, L>R. Several days ago the patient was camping when he missed a step and his foot went over the edge. He states that he is had pain and swelling in his left leg that he has been trying to take Tylenol and Motrin for, but he is continuing to have pain. He has been getting around by hopping on his right foot, and over the last 1-2 days his right foot has began to swell a little bit, however his left foot is causing him the most discomfort. He states that he is here today for x-rays to make sure he does not have a fracture. Related Data Home Medications Medication Instructions Recorded Confirmed allopurinol 100 mg tablet 100 mg PO DAILY 02/16/23 02/16/23 dextroamphetamine-amphetamine ER 1 cap PO DIRECTED 02/16/23 02/16/23 10 mg 24hr capsule,extend release dextroamphetamine-amphetamine ER 1 cap PO QAM 02/16/23 02/16/23 30 mg 24hr capsule,extend release trazodone 150 mg tablet 150 mg PO ONCE PM 02/16/23 02/16/23 venlafaxine 75 mg capsule,extended PO 02/16/23 release 24 hr Allergies Allergy/AdvReac Type Severity Reaction Status Date / Time No Known Drug Allergies Allergy Verified 02/16/23 09:11 Review of Systems Review of Systems Narrative: CONSTITUTIONAL- Denies: fever, chills, HEENT- Denies: sore throat, nosebleed, vision changes RESPIRATORY- Denies: shortness of breath, cough, wheezing CARDIAC- Denies: chest pain, edema, orthopnea GI- Denies: abdominal pain, nausea, vomiting, constipation, diarrhea - Denies: frequency, dysuria, hematuria, flank pain MSK-reports: Bilateral foot pain, bilateral foot swelling Denies: joint pain, joint swelling SKIN- Denies: rash, itching, burn, swelling NEUROLOGICAL- Denies: headache, numbness, weakness, dizziness PSYCHIATRIC- Denies: anxiety, depression, suicidal ideation, homicidal ideation Patient History Social History Smoking Status: Unknown if ever smoked Smoking Status: Unknown if ever smoked alcohol intake frequency: holidays/special occasions only Substance Use Type: does not use Exam Narrative Exam Narrative: Const: Well-nourished, Well-developed, appears stated age Eyes: PERRL, EOMI, conjunctiva normal ENT: Atraumatic, dentition normal, mucous membranes moist Cardiac: regular rate, regular rhythm RESP: unlabored, clear bilaterally, no wheezing GI: Atraumatic, nontender, nondistended, no rebound, no guarding MSK: Full range of motion, ambulatory, bilateral foot swelling, [id number], intact DP pulses, intact sensation Skin: Warm, Dry, intact, no rashes Neuro: AO x3, CN II-XII grossly intact, moves all extremities Psych: affect normal, mood normal, not suicidal, not homicidal Initial Vital Signs Initial Vital Signs: Vital Signs Temperature 98.2 F 02/16/23 09:05 Pulse Rate 72 02/16/23 09:05 Respiratory Rate 16 02/16/23 09:05 Blood Pressure 114/77 02/16/23 09:05 Pulse Oximetry 100 02/16/23 09:05 Oxygen Delivery Method Room Air 02/16/23 09:05 Course Course Course Narrative: Bilateral foot pain and swelling after accidental fall injury at a camp site. The right-sided foot swelling only occurred after he began to compensate by hopping on that foot to get around. Neurovascularly intact. X-ray imaging ordered, negative for acute fracture. Patient was counseled on rice instructions, I advised that if he continues to have pain in his feet after 2 weeks despite treatment he should return for repeat x-rays. Placed in shoe and Eligio wrap for comfort. ED return precautions discussed at bedside. Patient expressed understanding of the plan and is in agreement at this time. All questions answered at the time of discharge. Orders Ordered: ED Orders 02/16/23 09:06 XR ankle LT min 3V Stat XR foot LT min 3V Stat XR foot RT min 3V Stat Vital Signs Vital signs: Vital Signs - 8 hr 02/16/23 09:05 02/16/23 10:42 Temperature 98.2 F Pulse Rate 72 88 Respiratory Rate 16 18 Blood Pressure 114/77 Pulse Oximetry 100 98 Oxygen Delivery Method Room Air Room Air Discharge Plan Departure Patient Disposition: Home Clinical Impression: Contusion of foot or heel Instructions: DI for Contusion Activity Restrictions/Additional Instructions: WEAR THE SHOE NEEDED FOR COMFORT. REST YOUR FOOT, ICE THE EXTREMITY, AND ELEVATE AT REST. RETURN IF YOU ARE HAVING PAIN AND SWELLING 14 DAYS AFTER THE INJURY. Prescriptions: No Action venlafaxine 75 mg capsule,extended release 24hr PO allopurinol 100 mg tablet 100 mg PO DAILY trazodone 150 mg tablet 150 mg PO ONCE PM dextroamphetamine-amphetamine 10 mg capsule,extended release 24hr 1 cap PO DIRECTED Rx Instructions: in afternoon dextroamphetamine-amphetamine 30 mg capsule,extended release 24hr 1 cap PO QAM Referrals: Jesus Manuel Callahan DO [Primary Care Provider] - Stand Alone Forms: Patient Portal/API
[2023-02-16 10:42] VITALS: PULSE 88; RESP 18; O2SAT 98
== END 2023-02-16 10:44 | disposition home or self-care (01) ==
PROVIDERS: Emergency Provider Emergency Medicine; PCP Student in an Organized Health Care Education/Training Program
DX: S90.32XA Contusion of left foot, initial encounter (principal); S90.31XA Contusion of right foot, initial encounter; W18.30XA Fall on same level, unspecified, initial encounter
CPT/HCPCS: 73610; 73630; 99282; 99283

== ENCOUNTER 2023-04-04 07:38 | Emergency (ER) | payer OTHER, SELFPAY ==
[2023-04-04 07:41] VITALS: BP 128/73; PULSE 103; RESP 24; TEMP 37.3; O2SAT 100; BMI 31.3
--- NOTE | 2023-04-04 07:54 | ED_ITS ---
HPI - Skin/Abscess/Foreign Bdy General Chief complaint: Skin/Abscess/Foreign Body Stated complaint: pinky injury/fell into briars Time Seen by Provider: 04/04/23 07:46 Source: patient Mode of arrival: Ambulatory Limitations: no limitations History of Present Illness HPI narrative: Patient brought self in from home. Complaints of left pinky finger injury and multiple abrasions to his arms and legs and feet. Patient was camping over the weekend. Monday night he went into the trail in lost his balance. Got caught up in some [place] bushes. Has multiple abrasions to the legs and arms and feet. Patient injured his right 5th finger at the D IP joint. Has deformity to this joint. Denies any other injuries. Related Data Home Medications Medication Instructions Recorded Confirmed allopurinol 100 mg tablet 100 mg PO DAILY 02/16/23 02/16/23 dextroamphetamine-amphetamine ER 1 cap PO DIRECTED 02/16/23 02/16/23 10 mg 24hr capsule,extend release dextroamphetamine-amphetamine ER 1 cap PO QAM 02/16/23 02/16/23 30 mg 24hr capsule,extend release trazodone 150 mg tablet 150 mg PO ONCE PM 02/16/23 02/16/23 venlafaxine 75 mg capsule,extended PO 02/16/23 release 24 hr Previous Rx's Medication Instructions Recorded cephalexin 500 mg capsule 500 mg PO QID #20 caps 04/04/23 Allergies Allergy/AdvReac Type Severity Reaction Status Date / Time No Known Drug Allergies Allergy Verified 02/16/23 09:11 Review of Systems Review of Systems Narrative: GENERAL: negative chills, fatigue, malaise, fever, sweats. HEENT: negative sinus pain, ear pain, sore throat RESPIRATORY: negative dyspnea, cough CARDIOVASCULAR: negative chest pain, palpitations GASTROINTESTINAL: negative nausea, vomiting, abdominal pain : negative dysuria, frequency, hematuria MUSCULOSKELETAL: negative muscle positive bony pain SKIN: negative rash, skin lesions, positive skin injury NEUROLOGIC: negative weakness, numbness ROS Unobtainable: All systems reviewed & are unremarkable except as noted in HPI and below Patient History Social History Smoking Status: Former smoker Smoking Status: Former smoker alcohol intake frequency: holidays/special occasions only Substance Use Type: does not use Exam Narrative Exam Narrative: GENERAL: in no distress, not toxic not dyspneic HEAD: Normocephalic. EYES: Pupils equal round ENT: Mucous membranes moist. NECK: Trachea midline. CARDIOVASCULAR: Regular rate and rhythm RESPIRATORY: Clear to auscultation. Breath sounds equal bilaterally. No wheezes, rales, or rhonchi. EXTREMITIES: Examination of the right hand. There is flexion deformity to the D IP joint of the 5th digit. Nontender PIP joint as well as MCP joint. Skin is intact. Light touch intact to this finger. Skin is intact, fingernail intact. Able to flex and extend at the MCP joint. Limited range of motion at the D IP joint due to pain and deformity BACK: No flank tenderness. NEURO: AOx4. SKIN: Warm and dry, multiple scabbed abrasions of the lower extremities below the knee as well as some on the feet and toes. Abrasions to the forearms as well. Shoes and socks removed. No foreign body seen on the abrasions or on the feet. PSYCH: Not anxious, is cooperative Initial Vital Signs Initial Vital Signs: Vital Signs Temperature 99.1 F 04/04/23 07:41 Pulse Rate 103 H 04/04/23 07:41 Respiratory Rate 24 04/04/23 07:41 Blood Pressure 128/73 04/04/23 07:41 Pulse Oximetry 100 04/04/23 07:41 Oxygen Delivery Method Room Air 04/04/23 07:41 Procedures Orthopedic Splinting/Casting Injury #1: Time of procedure: 08:36 Side: right Upper Extremity Injury Location: finger Upper Extremity Immobilizer: aluminum form splint Post splinting neuro exam: intact and no change Post splinting vascular exam: no change Placed by: Nursing Course Orders Ordered: ED Orders 04/04/23 07:52 XR finger RT min 2V Stat Discontinued Medications Bacitracin (Bacitracin Oint 0.9 Gm Pckt) 1 applic TOP NOW ONE Stop: 04/04/23 07:53 Last Admin: 04/04/23 08:09 Dose: 1 applic Documented By: LEROY Cephalexin HCl (Cephalexin 250 Mg Capsule) 500 mg PO NOW ONE Stop: 04/04/23 07:53 Last Admin: 04/04/23 08:09 Dose: 500 mg Documented By: LEROY Diphtheria/Tetanus/Acell Pertussis (Tet,Diph,Pertuss(Acell),Vac/Pf 0.5 Ml Syringe) 0.5 ml IM .ONCE ONE Stop: 04/04/23 07:53 Last Admin: 04/04/23 08:09 Dose: 0.5 ml Documented By: LEROY Vital Signs Vital signs: Vital Signs - 8 hr 04/04/23 07:41 Temperature 99.1 F Pulse Rate 103 H Respiratory Rate 24 Blood Pressure 128/73 Pulse Oximetry 100 Oxygen Delivery Method Room Air MDM - Skin/Abscess/Foreign Bdy Imaging Data Extremity x-ray #1: Radiologist's Impression: [address] [address] XRay Report Signed Patient: Zechariah Green MR#: [id number] : 1975 Acct:[id number] Age/Sex: 47 / M Date of Service: 04/04/23 Loc: ED Accession Number: [id number] Procedure: XR finger RT min 2V Ordering Provider: Mateus Cary MD 1PROCEDURE: XR FINGER RT MIN 2V INDICATIONS: pinky finger injury TECHNIQUE: AP hand, 2 views of the 5th finger(s) acquired. COMPARISON: None. FINDINGS: Bones: Possible punctate avulsion injury at the distal phalangeal volar plate. Soft tissues: No suspicious calcifications elsewhere. IMPRESSION: Punctate bone fragment at the distal phalangeal volar plate may represent an avulsion injury. Dictated by: Alon Springer M.D. on 04/04/2023 at 8:22 Approved by: Alon Springer M.D. on 04/04/2023 at 8:24 [facility] Narrative Medical decision making narrative: Patient brought self in from home. Complaints of left pinky finger injury and multiple abrasions to his arms and legs and feet. Patient was camping over the weekend. Monday night he went into the trail in lost his balance. Got caught up in some [place] bushes. Has multiple abrasions to the legs and arms and feet. Patient injured his right 5th finger at the D IP joint. Has deformity to this joint. Denies any other injuries. After history and exam x-ray right pinky, bacitracin, Keflex [facility] CC: Finger pain, skin injury Complicating co-morbidities: None Data collected from: Patient Medical records reviewed: No recent visit for this complaint Differential considered: Includes but not limited to finger dislocation finger fracture finger sprain, multiple abrasions Exam documented above, pertinent findings include: Abrasions and finger deformity Imaging studies independently reviewed: X-ray right pinky possible punctate bone fragment Treatments: Bacitracin Keflex Tdap Re-evaluations: Reviewed results with patient. They are reassuring. Splint applied. Patient tolerated very well. Return precautions reviewed with patient. Referral for primary care as well as Orthopedics for follow up provided. Work note provided. Pain is controlled. Not toxic at discharge. Patient desires discharge home Discussion: Appropriate for discharge home. Exam and imaging are reassuring. Work note provided. Antibiotics have been started. Wound care provided. Not toxic discharge. Patient desires discharge home. X-ray reviewed. However will not pack changer if avulsion fracture Diagnosis: Finger sprain abrasions Discharge Plan Departure Patient Disposition: Home Clinical Impression: Abrasion, multiple sites Sprain of finger of right hand Qualifiers: Encounter type: initial encounter Finger: little finger Sprain of finger site: unspecified site Qualified Code(s): S63.616A - Unspecified sprain of right little finger, initial encounter Instructions: DI for Finger Sprain, DI for Abrasion Activity Restrictions/Additional Instructions: Clean your skin abrasions daily with warm soap and water and apply thin layer topical antibiotic. [facility] to [facility] today. Use finger splint for comfort. Call provided orthopedic office today for office re-evaluation within a week. See family doctor in week for re-evaluation of your skin abrasions. Call provided primary care referral phone number to establish family doctor. Call [phone]. Return if worse if any questions or concerns Prescriptions: New cephalexin 500 mg capsule 500 mg PO QID Qty: 20 0RF No Action venlafaxine 75 mg capsule,extended release 24hr PO allopurinol 100 mg tablet 100 mg PO DAILY trazodone 150 mg tablet 150 mg PO ONCE PM dextroamphetamine-amphetamine 10 mg capsule,extended release 24hr 1 cap PO DIRECTED Rx Instructions: in afternoon dextroamphetamine-amphetamine 30 mg capsule,extended release 24hr 1 cap PO QAM Referrals: Jesus Manuel Callahan DO [Primary Care Provider] - Abdifatah Rodriguez MD [Physician] - Stand Alone Forms: Patient Portal/API, Work Release Note
[2023-04-04] MEDS: cephALEXin 250 MG CAPSULE 500 MG PO (08:09)
[2023-04-04] MEDS: TET,DIPH,PERTUSS(ACELL),VAC/PF 0.5 ML SYRINGE IM (08:09)
[2023-04-04] MEDS: BACITRACIN OINT 0.9 GM PCKT 1 APPLIC TOP (08:09)
== END 2023-04-04 08:40 | disposition home or self-care (01) ==
PROVIDERS: Emergency Provider Emergency Medicine; PCP Student in an Organized Health Care Education/Training Program
DX: S63.616A Unspecified sprain of right little finger, initial encounter (principal); S80.812A Abrasion, left lower leg, initial encounter; S80.811A Abrasion, right lower leg, initial encounter; S50.812A Abrasion of left forearm, initial encounter; S50.811A Abrasion of right forearm, initial encounter; W18.30XA Fall on same level, unspecified, initial encounter; Y93.89 Activity, other specified; Z23 Encounter for immunization
CPT/HCPCS: 73140; 90471; 99283; 99284; 90715

== ENCOUNTER 2023-09-24 19:17 | Emergency (ER) | payer OTHER, SELFPAY ==
[2023-09-24 19:19] VITALS: BP 128/85; PULSE 110; RESP 18; TEMP 36.8; O2SAT 100; BMI 31.7
[2023-09-24] MEDS: METOCLOPRAMIDE 10 MG/2 ML INJ IV (20:14)
[2023-09-24] MEDS: KETOROLAC 30 MG/ML VIAL 15 MG IV (20:15)
[2023-09-24] MEDS: SODIUM CHLORIDE 0.9% 1,000 ML 1000 ML IV (20:15)
--- NOTE | 2023-09-24 21:06 | ED_ITS ---
HPI - Headache General Chief Complaint: Headache Stated Complaint: headache Time Seen by Provider: 09/24/23 20:06 Source: patient, RN notes reviewed and old records reviewed Mode of arrival: Ambulatory Limitations: no limitations History of Present Illness HPI Narrative: 48-year-old male with history of chronic headaches, anxiety who presents with complaint of similar symptoms. Patient states he has never been formally diagnosed with migraines but states he does get headaches he will often take Excedrin migraine for it and it will be helpful but today was bit more intense. Patient states headache had a gradual onset earlier today around noon had similar symptoms where his left eye will be little teary and then he starts to get photophobia, phonophobia. Patient states no nausea or vomiting. No fevers. No neck or back pain. No neurologic changes. He try dose of Excedrin but with minimal improvement which is what prompted him to come be evaluated. Patient states he is allergic to peanuts but no known drug allergies. Former smoker, occasional alcohol, no recreational drugs. Related Data Home Medications Medication Instructions Recorded Confirmed allopurinol 100 mg tablet 100 mg PO DAILY 02/16/23 02/16/23 dextroamphetamine-amphetamine ER 1 cap PO DIRECTED 02/16/23 02/16/23 10 mg 24hr capsule,extend release dextroamphetamine-amphetamine ER 1 cap PO QAM 02/16/23 02/16/23 30 mg 24hr capsule,extend release trazodone 150 mg tablet 150 mg PO ONCE PM 02/16/23 02/16/23 venlafaxine 75 mg capsule,extended PO 02/16/23 release 24 hr Previous Rx's Medication Instructions Recorded cephalexin 500 mg capsule 500 mg PO QID #20 caps 04/04/23 metoclopramide HCl 10 mg tablet 10 mg PO Q6H PRN nausea and 09/24/23 (Reglan) vomiting #10 tabs Allergies Allergy/AdvReac Type Severity Reaction Status Date / Time No Known Drug Allergies Allergy Verified 02/16/23 09:11 Review of Systems Review of Systems ROS Unobtainable: All systems reviewed & are unremarkable except as noted in HPI and below Patient History Social History Smoking Status: Former smoker Smoking Status: Former smoker alcohol intake frequency: holidays/special occasions only Substance Use Type: does not use Exam Narrative Exam Narrative: GEN: well nourished, well appearing male, alert and oriented x 3, patient appears to be in mild distress. HEENT: Atraumatic, pupils are equal round reactive to light, extraocular movements are intact, nares are clear, there is no conjunctival pallor. Throat is clear without any exudates, erythema, tonsillar enlargement or uvular deviation, facial droop, no meningeal signs. HEART: Regular rate and rhythm without murmur, clicks, rubs. LUNGS:Lungs clear to auscultation, no wheezes, rales, crackles, chest moves symmetrically ABD:bowel sounds normal, soft, non-tender, no guarding, rebound, rigidity, no masses noted, no hepatosplenomegaly MSCL: Non-tender, no muscle atrophy, muscles strength 5/5 upper and lower extremities, full range of motion, normal gait. Patient was ambulating to and from the bathroom initially when I saw him, seated on the side of the bed afterwards appears comfortable. NEURO:CN 2-12 intact, sensation normal SKIN: Rash, erythema or other skin changes. Initial Vital Signs Initial Vital Signs: Vital Signs Temperature 98.3 F 09/24/23 19:19 Pulse Rate 110 H 09/24/23 19:19 Respiratory Rate 18 09/24/23 19:19 Blood Pressure 128/85 09/24/23 19:19 Pulse Oximetry 100 09/24/23 19:19 Oxygen Delivery Method Room Air 09/24/23 19:19 Course Orders Ordered: Discontinued Medications Sodium Chloride (Normal Saline 0.9%) 1,000 mls @ 1,000 mls/hr IV BOLUS ONE Stop: 09/24/23 21:05 Last Infusion: 09/24/23 20:50 Dose: Infused Documented By: Admin: 09/24/23 20:15 Dose: 1,000 mls/hr Documented By: AB Ketorolac Tromethamine (Ketorolac 30 Mg/Ml Vial) 15 mg IV NOW ONE Stop: 09/24/23 20:07 Last Admin: 09/24/23 20:15 Dose: 15 mg Documented By: AB Metoclopramide HCl (Metoclopramide 10 Mg/2 Ml Inj) 10 mg IV NOW ONE Stop: 09/24/23 20:07 Last Admin: 09/24/23 20:14 Dose: 10 mg Documented By: AB Vital Signs Vital signs: Vital Signs - 8 hr 09/24/23 19:19 09/24/23 21:43 Temperature 98.3 F Pulse Rate 110 H 86 Respiratory Rate 18 17 Blood Pressure 128/85 118/77 Pulse Oximetry 100 99 Oxygen Delivery Method Room Air Room Air MDM - Headache MDM Narrative Medical decision making narrative: 48-year-old male with history of headaches that sound like migraines little bit worse today typical pattern with no other acute changes or red flag symptoms. Patient had no acute neurologic changes, no fevers or infectious changes appreciated. He had Toradol, fluids and Reglan and feels significantly improved after medications. He wishes for discharge home. Discussed return precautions and red flag symptoms. Discharge Plan Departure Patient Disposition: Home Clinical Impression: Migraine Activity Restrictions/Additional Instructions: Follow up for recheck as needed. If you are headaches are becoming more frequent or increasing in intensity you should follow-up for evaluation. You may continue to take Tylenol and/or ibuprofen or Excedrin as needed for headaches. You can take Reglan 1 tablet every 6 hours as needed for nausea/vomiting but this is often helpful if taken with the Tylenol or Excedrin for migraine symptoms. Prescription sent to [facility] in [place]. Please return for rapidly worsening or increasing severity of headaches, passing out, fevers, sudden vision changes, new numbness tingling or weakness, loss of bowel or bladder control, persistent vomiting or other new or concerning changes. Prescriptions: New metoclopramide HCl [Reglan] 10 mg tablet 10 mg PO Q6H PRN (Reason: nausea and vomiting) Qty: 10 0RF No Action venlafaxine 75 mg capsule,extended release 24hr PO allopurinol 100 mg tablet 100 mg PO DAILY trazodone 150 mg tablet 150 mg PO ONCE PM dextroamphetamine-amphetamine 10 mg capsule,extended release 24hr 1 cap PO DIRECTED Rx Instructions: in afternoon dextroamphetamine-amphetamine 30 mg capsule,extended release 24hr 1 cap PO QAM cephalexin 500 mg capsule 500 mg PO QID Qty: 20 0RF Referrals: Jesus Manuel Callahan DO [Primary Care Provider] - Stand Alone Forms: Patient Portal/API
[2023-09-24 21:43] VITALS: BP 118/77; PULSE 86; RESP 17; O2SAT 99
== END 2023-09-24 21:45 | disposition home or self-care (01) ==
PROVIDERS: Emergency Provider Emergency Medicine; PCP Student in an Organized Health Care Education/Training Program
DX: G43.909 Migraine, unspecified, not intractable, without status migrainosus (principal)
CPT/HCPCS: 36415; 96361; 96374; 96375; 99284; J1885; J2765

== ENCOUNTER 2023-11-13 07:33 | Emergency (ER) | payer OTHER, SELFPAY ==
[2023-11-13 07:38] VITALS: BP 135/83; PULSE 91; RESP 18; TEMP 36.3; O2SAT 99; BMI 31.7
--- NOTE | 2023-11-13 08:13 | ED_ITS ---
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 You finds that the twisting turning and moving that he needs to do to accommodate for the right wrist has likely exacerbated his chronic back pain. That has been increasing pain for the last 3 days. It is paraspinous muscle spasm at approximately T11- L2. He has no significant radicular symptoms. No flank pain, obvious muscle spasm. He is having waves of pain with any type of movement. He is asking for help with the acute pain. He describes no fever, cough, chills. He has no red flags for epidural abscess or diskitis. There is no indication for imaging based on his physical exam and history at this time. Related Data Home Medications Medication Instructions Recorded Confirmed allopurinol 100 mg tablet 100 mg PO DAILY 02/16/23 02/16/23 dextroamphetamine-amphetamine ER 1 cap PO DIRECTED 02/16/23 02/16/23 10 mg 24hr capsule,extend release dextroamphetamine-amphetamine ER 1 cap PO QAM 02/16/23 02/16/23 30 mg 24hr capsule,extend release trazodone 150 mg tablet 150 mg PO ONCE PM 02/16/23 02/16/23 venlafaxine 75 mg capsule,extended PO 02/16/23 release 24 hr Previous Rx's Medication Instructions Recorded cephalexin 500 mg capsule 500 mg PO QID #20 caps 04/04/23 metoclopramide HCl 10 mg tablet 10 mg PO Q6H PRN nausea and 09/24/23 (Reglan) vomiting #10 tabs lidocaine 5 % topical patch 1 patch topical DAILY #15 ea 11/13/23 (Lidoderm) oxycodone-acetaminophen 5 mg-325 1 tab PO Q6H PRN pain #14 tabs 11/13/23 mg tablet Allergies Allergy/AdvReac Type Severity Reaction Status Date / Time No Known Drug Allergies Allergy Verified 02/16/23 09:11 Review of Systems Review of Systems Narrative: Pertinent positive and negative findings as per HPI Patient History Social History Smoking Status: Former smoker Smoking Status: Former smoker alcohol intake frequency: holidays/special occasions only Substance Use Type: does not use Exam Initial Vital Signs Initial Vital Signs: Vital Signs Temperature 97.4 F L 11/13/23 07:38 Pulse Rate 91 H 11/13/23 07:38 Respiratory Rate 18 11/13/23 07:38 Blood Pressure 135/83 11/13/23 07:38 Pulse Oximetry 99 11/13/23 07:38 Oxygen Delivery Method Room Air 11/13/23 07:38 General: Alert appropriate, moderate distress with muscle spasm, most comfortable position is seated and flexed slightly forward. He describes no paresthesias. Respiratory: Able to speak in full sentences, no obvious respiratory distress Skin: No obvious rashes, warm and dry Spine: Paraspinous spasm the completely reproduces his pain right side T10-L2 with no midline tenderness, no rashes to suggest zoster no radicular pain Neurologic: Grossly intact no obvious asymmetries or abnormalities Psych: appropriate insight and affect, cooperative Course Vital Signs Vital signs: Vital Signs - 8 hr 11/13/23 07:38 Temperature 97.4 F L Pulse Rate 91 H Respiratory Rate 18 Blood Pressure 135/83 Pulse Oximetry 99 Oxygen Delivery Method Room Air MDM - Back Pain/Injury MDM Narrative Medical decision making narrative: CC: Acute low back pain Complicating co-morbidities: Prior episodes of low back pain, chronic wrist pain and so he needs to twist and turn to use his left arm to compensate for the right hand Data collected from: patient Differential considered: Acute low back spasm, He has no red flags for epidural abscess or diskitis. There is no indication for imaging based on his physical exam and history at this time. Exam documented above, pertinent findings include: Painful spasms, no flank pain, paraspinous muscle spasm reproduces his pain. Treatments: IM Toradol Discussion: Acute low back pain in a 48-year-old gentleman. We had a long discussion regarding treatment options. With shared decision-making we opted to use nonsteroidals and narcotics for brief period of time. He is already using ice and heat which is appropriate. Reviewed the appropriate nature of acute pain control for initial pain and how it is no longer effective and has significant potential for addiction with more chronic pain. [place] I did recommend consideration of physical therapy for his back once the acute spasm has improved. He is safe for discharge Discharge Plan Departure Clinical Impression: Acute back pain Qualifiers: Back pain location: low back pain Back pain laterality: right Sciatica presence: without sciatica Qualified Code(s): M54.50 - Low back pain, unspecified Instructions: DI for Muscle Strain Activity Restrictions/Additional Instructions: Thank you for coming in Your pain is fairly classic for an acute back strain. The muscles are spasming which is causing the pain going up and down the spine on the right side. Using ice and heat is appropriate. Gentle stretching can be helpful. Making sure that you are still up and around and moving is absolutely required. Medication use for pain control using 400 mg of ibuprofen (2 [id number] pills) and 1 Tylenol every 6 hours can be very helpful in controlling pain. For severe pain you can use 400 mg of ibuprofen and 1 Percocet. Percocet has narcotic in it and will be constipating. This should not be used for an extended period of time I have given you a lidocaine patch to try in the emergency department. If this is helpful you can feel the prescription. If you find that it does not influence your pain you do not need to bother with a prescription Please [place] When your pain is no longer dramatically acute, you may well benefit from physical therapy for your low back. Prescriptions: New oxycodone-acetaminophen 5-325 mg tablet 1 tab PO Q6H PRN (Reason: pain) Qty: 14 0RF lidocaine [Lidoderm] 5 % adhesive patch,medicated 1 patch topical DAILY Qty: 15 0RF Rx Instructions: leave on most painful area for up to 12 hrs No Action metoclopramide HCl [Reglan] 10 mg tablet 10 mg PO Q6H PRN (Reason: nausea and vomiting) Qty: 10 0RF venlafaxine 75 mg capsule,extended release 24hr PO allopurinol 100 mg tablet 100 mg PO DAILY trazodone 150 mg tablet 150 mg PO ONCE PM dextroamphetamine-amphetamine 10 mg capsule,extended release 24hr 1 cap PO DIRECTED Rx Instructions: in afternoon dextroamphetamine-amphetamine 30 mg capsule,extended release 24hr 1 cap PO QAM cephalexin 500 mg capsule 500 mg PO QID Qty: 20 0RF Referrals: Jesus Manuel Callahan DO [Primary Care Provider] - Stand Alone Forms: Work Release Note
[2023-11-13] MEDS: KETOROLAC 30 MG/ML VIAL IM (09:49)
[2023-11-13] MEDS: LIDOCAINE 5% PATCH 1 EACH TOP (09:49)
[2023-11-13 09:59] VITALS: BP 144/80; PULSE 89; RESP 20; TEMP 36.5; O2SAT 100
== END 2023-11-13 09:59 | disposition home or self-care (01) ==
PROVIDERS: Emergency Provider Emergency Medicine; PCP Student in an Organized Health Care Education/Training Program
DX: M54.50 Low back pain, unspecified (principal); M25.531 Pain in right wrist
CPT/HCPCS: 96372; 99283; J1885

== ENCOUNTER 2024-02-21 12:45 | Emergency (ER) | payer OTHER, SELFPAY ==
[2024-02-21 12:51] VITALS: BP 127/77; PULSE 88; RESP 15; TEMP 36.2; O2SAT 99
--- NOTE | 2024-02-21 13:21 | PC.NURSE ---
Pt states that he wants refill for adderall. Pt very anxious and states that it has been about a week since he's taking his medications.
--- NOTE | 2024-02-21 13:27 | ED_ITS ---
HPI - Recheck/Abnormal Lab/Rx <Fatmata Biggs PA-C - Last Filed: 02/21/24 15:44> General Chief Complaint: Recheck/Abnormal Lab/Rx Stated Complaint: frustruated needs help estefany Time Seen by Provider: 02/21/24 13:07 Source: patient Mode of arrival: Family Vehicle History of Present Illness HPI narrative: 48-year-old male presents today requesting a refill of his Adderall prescription as he has been out for about 1 week. He is no longer with the [facility] as he is retired, and he is yet to reestablish primary care. He states he takes 30 mg extended release in the morning and 10 mg immediate release in the evening prescribed via [facility] here in [facility]. He is denying any acute complaint except inability to focus and feels a little jumpy. [facility] he believes that his new assigned provider might be here in [facility] but he is unsure of the name. He was able to locate his new provider Tamia Mckeon nurse practitioner and has an appointment on [address] [place] [id number] at [facility]. He is denying any symptoms of depression or anxiety per se. All other systems are reviewed and are negative. Related Data Home Medications Medication Instructions Recorded Confirmed allopurinol 100 mg tablet 100 mg PO DAILY 02/16/23 02/16/23 trazodone 150 mg tablet 150 mg PO ONCE PM 02/16/23 02/16/23 venlafaxine 75 mg capsule,extended PO 02/16/23 release 24 hr Previous Rx's Medication Instructions Recorded cephalexin 500 mg capsule 500 mg PO QID #20 caps 04/04/23 metoclopramide HCl 10 mg tablet 10 mg PO Q6H PRN nausea and 09/24/23 (Reglan) vomiting #10 tabs lidocaine 5 % topical patch 1 patch topical DAILY #15 ea 11/13/23 (Lidoderm) oxycodone-acetaminophen 5 mg-325 1 tab PO Q6H PRN pain #14 tabs 11/13/23 mg tablet dextroamphetamine-amphetamine ER 1 cap PO DIRECTED #8 caps 02/21/24 10 mg 24hr capsule,extend release dextroamphetamine-amphetamine ER 10 mg PO DAILY #8 caps 02/21/24 10 mg 24hr capsule,extend release (Adderall XR) dextroamphetamine-amphetamine ER 10 mg PO DAILY #8 caps 02/21/24 10 mg 24hr capsule,extend release (Adderall XR) dextroamphetamine-amphetamine ER 1 cap PO QAM #8 caps 02/21/24 30 mg 24hr capsule,extend release dextroamphetamine-amphetamine ER 30 mg PO QAM #8 caps 02/21/24 30 mg 24hr capsule,extend release (Adderall XR) dextroamphetamine-amphetamine ER 30 mg PO QAM #8 caps 02/21/24 30 mg 24hr capsule,extend release (Adderall XR) Allergies Allergy/AdvReac Type Severity Reaction Status Date / Time No Known Drug Allergies Allergy Verified 02/21/24 13:00 Review of Systems <Fatmata Biggs PA-C - Last Filed: 02/21/24 15:44> Review of Systems Narrative: All other systems reviewed and are negative. Patient History <Fatmata Biggs PA-C - Last Filed: 02/21/24 15:44> Social History Smoking Status: Former smoker Smoking Status: Former smoker tobacco type: cigarettes alcohol intake frequency: holidays/special occasions only Substance Use Type: does not use Exam <Fatmata Biggs PA-C - Last Filed: 02/21/24 15:44> Initial Vital Signs Initial Vital Signs: Vital Signs Temperature 97.2 F L 02/21/24 12:51 Pulse Rate 88 02/21/24 12:51 Respiratory Rate 15 02/21/24 12:51 Blood Pressure 127/77 02/21/24 12:51 Pulse Oximetry 99 02/21/24 12:51 Oxygen Delivery Method Room Air 02/21/24 12:51 Vital signs reviewed and are normal. Const Other: Smiling, pleasantly conversing, but pacing in the room, no distress. Resp Effort & Inspection: normal respiratory effort and able to speak in complete sentences Auscultation: clear to auscultation bilaterally, no rales, no rhonchi and no wheezes Cardio Rate: regular rate Rhythm: regular rhythm Skin General: no rashes or lesions noted, elasticity normal and turgor normal Neuro Other: Alert and oriented x4, pleasant affect. <Betty Madrigal MD - Last Filed: 02/21/24 18:22> Initial Vital Signs Initial Vital Signs: Vital Signs Temperature 97.2 F L 02/21/24 12:51 Pulse Rate 88 02/21/24 12:51 Respiratory Rate 15 02/21/24 12:51 Blood Pressure 127/77 02/21/24 12:51 Pulse Oximetry 99 02/21/24 12:51 Oxygen Delivery Method Room Air 02/21/24 12:51 Course <Fatmata Biggs PA-C - Last Filed: 02/21/24 15:44> Vital Signs Vital signs: Vital Signs - 8 hr 02/21/24 12:51 02/21/24 13:55 Temperature 97.2 F L Pulse Rate 88 Respiratory Rate 15 17 Blood Pressure 127/77 Pulse Oximetry 99 Oxygen Delivery Method Room Air <Betty Madrigal MD - Last Filed: 02/21/24 18:22> Vital Signs Vital signs: Vital Signs - 8 hr 02/21/24 12:51 02/21/24 13:55 Temperature 97.2 F L Pulse Rate 88 Respiratory Rate 15 17 Blood Pressure 127/77 Pulse Oximetry 99 Oxygen Delivery Method Room Air MDM - Recheck/Abnormal Lab/Rx <Fatmata Biggs PA-C - Last Filed: 02/21/24 15:44> Medical Records Medical records narrative: Reviewed his medical records and confirmed his Adderall dosing. [facility] Narrative Medical decision making narrative: Attention deficit disorder that he has had for many years now, he has not established care appointment with Tamia Mckeon on February 27, I have given him enough medication to bridge him until that appointment which totals 8 days from now. Red flag warning signs reviewed with this patient as well as instructions on taking his medication at the same time every day each day. Discharge Plan Departure Patient Disposition: Home Clinical Impression: Encounter for medication refill Instructions: DI for Safely Taking and Storing Medications -- Adults Activity Restrictions/Additional Instructions: Please keep your appointment with Tamia Mckeon on February 27 for any future medication management and refills. If you have any issues between now and then please do not hesitate to return, I wish you the best of luck with your new PCP and life outside the [place]. Prescriptions: New dextroamphetamine-amphetamine [Adderall XR] 30 mg capsule,extended release 24hr 30 mg PO QAM Qty: 8 0RF dextroamphetamine-amphetamine [Adderall XR] 10 mg capsule,extended release 24hr 10 mg PO DAILY Qty: 8 0RF Rx Instructions: once in afternoon dextroamphetamine-amphetamine [Adderall XR] 10 mg capsule,extended release 24hr 10 mg PO DAILY Qty: 8 0RF Rx Instructions: once by mouth every afternoon dextroamphetamine-amphetamine [Adderall XR] 30 mg capsule,extended release 24hr 30 mg PO QAM Qty: 8 0RF Continued dextroamphetamine-amphetamine 10 mg capsule,extended release 24hr 1 cap PO DIRECTED Qty: 8 0RF Rx Instructions: in afternoon dextroamphetamine-amphetamine 30 mg capsule,extended release 24hr 1 cap PO QAM Qty: 8 0RF No Action metoclopramide HCl [Reglan] 10 mg tablet 10 mg PO Q6H PRN (Reason: nausea and vomiting) Qty: 10 0RF venlafaxine 75 mg capsule,extended release 24hr PO allopurinol 100 mg tablet 100 mg PO DAILY trazodone 150 mg tablet 150 mg PO ONCE PM cephalexin 500 mg capsule 500 mg PO QID Qty: 20 0RF oxycodone-acetaminophen 5-325 mg tablet 1 tab PO Q6H PRN (Reason: pain) Qty: 14 0RF lidocaine [Lidoderm] 5 % adhesive patch,medicated 1 patch topical DAILY Qty: 15 0RF Rx Instructions: leave on most painful area for up to 12 hrs Referrals: Tamia Mckeon, [employer] [Primary Care Provider] - Stand Alone Forms: Patient Portal/API ED Sign-out <Betty Madrigal MD - Last Filed: 02/21/24 18:22> Cosign ED Attending Cosignature Attestation: I was immediately available in the department for consultation throughout this patient's visit. Betty Madrigal MD
[2024-02-21 13:55] VITALS: RESP 17
== END 2024-02-21 13:56 | disposition home or self-care (01) ==
PROVIDERS: Emergency Provider Physician Assistant Medical; PCP Nurse Practitioner Family
DX: Z76.0 Encounter for issue of repeat prescription (principal)
CPT/HCPCS: 99281